=== PATIENT | male | born 1960 | race Caucasian/White ===

== ENCOUNTER 2017-10-01 19:12 | Emergency (ER) | payer SELFPAY ==
[2017-10-01] MEDS ORDERED: ROSU5TAB PO (19:32)
[2017-10-01] MEDS ORDERED: VALS160T2 PO (19:32)
--- NOTE | 2017-10-01 19:49 | NUR ---
Attempted to triage pt, pt was not found in ER lobby or outside ER.
== END 2017-10-01 19:50 | disposition left against medical advice (07) ==
LOC: ER 19:13
DX: Z53.21 Procedure and treatment not carried out due to patient leaving prior to being seen by health care provider (principal)

== ENCOUNTER 2017-10-02 06:41 | Emergency (ER) | payer SELFPAY ==
[~2017-10-02] VITALS: Ht 188 cm; Wt 74.8 kg
[~2017-10-02 06:41] MED LIST: ROSU5TAB PO; VALS160T2 PO
--- NOTE | 2017-10-02 06:49 | NUR ---
Attempted to call patient in for triage. Patient not present in waiting room.
[2017-10-02] MEDS ORDERED: IBUPROFEN 200 MG TABLET PO ONE (07:00)
[2017-10-02] MEDS ORDERED: ACETAMINOPHEN 325 MG TABLET PO ONE (07:00)
[2017-10-02] MEDS ORDERED: ACETAMINOPHEN ES 500 MG TABLET ONE (07:35)
[2017-10-02] MEDS ORDERED: IBUPROFEN 600 MG TABLET ONE (07:35)
[2017-10-02] MEDS ORDERED: DEXAMETHASONE 4 MG TABLET PO ONE (11:15)
--- NOTE | 2017-10-02 11:29 | NUR ---
Patient discharged to home in stable conditon. Written and verbal after care instructions given. Patient verbalizes understanding of instructions.
== END 2017-10-02 11:29 | disposition home or self-care (01) ==
LOC: ER 06:44
DX: B34.9 Viral infection, unspecified (principal); Z59.0 Homelessness
CPT/HCPCS: 36415; 71045; 86403; 87070; 87400; A4663